=== PATIENT | female | born 1965 | race Caucasian/White ===

== ENCOUNTER 2020-08-19 16:04 | Emergency (ER) | payer OTHER ==
[~2020-08-19] VITALS: Ht 165.1 cm; Wt 90.9 kg
[2020-08-19 16:06] VITALS: BP 162/82
[2020-08-19 16:16] LABS: COVID AG,FIA SOURCE NASAL SWAB
== END 2020-08-19 17:34 | disposition home or self-care (01) ==
LOC: EMS 16:10
DX: Z20.822 Contact with and (suspected) exposure to COVID-19 (principal); E11.9 Type 2 diabetes mellitus without complications
CPT/HCPCS: 87426; 99283

== ENCOUNTER 2020-12-06 08:29 | Emergency (ER) | payer OTHER ==
[~2020-12-06] VITALS: Ht 165.1 cm; Wt 90.9 kg
[2020-12-06 08:41] VITALS: BP 135/80
[2020-12-06 09:00] LABS: COVID AG,FIA SOURCE NASAL SWAB
== END 2020-12-06 09:09 | disposition home or self-care (01) ==
LOC: EMS 08:29
DX: Z20.822 Contact with and (suspected) exposure to COVID-19 (principal); E11.9 Type 2 diabetes mellitus without complications
CPT/HCPCS: 87426; 99283; U0003

== ENCOUNTER 2022-06-22 10:37 | Emergency (ER) | payer OTHER ==
[~2022-06-22] VITALS: Ht 165.1 cm; Wt 113.6 kg
[2022-06-22] MEDS ORDERED: SODIUM CHLORIDE 0.9% 250 ML IRRIG SOLUTION BOTTLE IRRIG ONE (10:45)
[2022-06-22] MEDS ORDERED: OxyCODONE HCL/ACETAMINOPHEN 5-325 MG TABLET PO ONE (10:45)
[2022-06-22] MEDS ORDERED: PROG100C24 PO (10:51)
[2022-06-22] MEDS ORDERED: METF-1211 PO (10:51)
[2022-06-22 11:29] VITALS: BP 151/119
[2022-06-22] MEDS ORDERED: HYDR-4723 PO (12:09)
[2022-06-22] MEDS ORDERED: CEPH-558 PO (12:09)
== END 2022-06-22 13:18 | disposition home or self-care (01) ==
LOC: EMS 10:57
DX: S62.521B Displaced fracture of distal phalanx of right thumb, initial encounter for open fracture (principal); E11.9 Type 2 diabetes mellitus without complications; X58.XXXA Exposure to other specified factors, initial encounter; Y93.89 Activity, other specified; Y92.89 Other specified places as the place of occurrence of the external cause; Y99.8 Other external cause status
CPT/HCPCS: 99283; 73140; 29130; 96372; J0690